=== PATIENT | female | born 1990 | race Two or more races ===

== ENCOUNTER 2020-10-08 00:03 | Emergency (ER) | payer SELFPAY ==
[~2020-10-08] VITALS: Ht 149.9 cm; Wt 56.7 kg
[2020-10-08 00:30] VITALS: BP 104/66
--- NOTE | 2020-10-08 00:58 | NUR ---
medically stable for d/c. Patient discharged to home in stable condition. Written and verbal after care instructions given. Patient verbalizes understanding of instruction.
== END 2020-10-08 01:00 | disposition home or self-care (01) ==
LOC: ER 00:06
DX: Z71.1 Person with feared health complaint in whom no diagnosis is made (principal)

== ENCOUNTER 2021-06-21 00:13 | Emergency (ER) | payer SELFPAY ==
[~2021-06-21] VITALS: Ht 149.9 cm; Wt 54.4 kg
--- NOTE | 2021-06-21 00:58 | NUR ---
BIBS W/ MULTIPLE COMPLAINTS, "FEELING SHAKY, AND FATIGUED WITH NUMBNESS AND TINGLINGS TO FINGERS AND LIPS X 1 WEEK THAT HAS WORSTENED TODAY. PT ALERT AND ORIENTED X 4 BREATHING EVEN AND UNLABORED. ALL V/S STABLE.
[2021-06-21 02:47] LABS: BASOPHILS # (AUTO) 0.1 K/uL (0.0-0.2); BASOPHILS % (AUTO) 1.1 % (0.0-2.0); EOSINOPHILS % (AUTO) 2.8 % (0.0-6.0); HEMATOCRIT 35 % (33-45); HEMOGLOBIN 11.1 g/dL (11.5-14.8); LYMPHOCYTES # (AUTO) 1.9 K/uL (0.8-4.8); MEAN CORPUSCULAR HGB CONC 31 g/dl (31.0-36.0); MEAN CORPUSCULAR VOLUME 73 fL (82-100); MONOCYTES # (AUTO) 0.6 K/uL (0.1-1.30); MONOCYTES % (AUTO) 10.2 % (2.0-12.0); NEUTROPHILS % (AUTO) 52.9 % (43.0-81.0); PLATELET COUNT (AUTO) 554 K/uL (150-450); RED BLOOD CELL COUNT(AUTO) 4.88 MIL/uL (4.0-5.2); WHITE BLOOD COUNT (AUTO) 5.7 K/uL (4.3-11.0)
[2021-06-21 03:04] LABS: MAGNESIUM 2.1 mg/dL (1.8-2.4)
[2021-06-21 03:13] LABS: ALBUMIN 3.7 g/dL (3.4-5.0); BILIRUBIN,DIRECT 0.1 mg/dL (0.0-0.2); BILIRUBIN,TOTAL 0.2 mg/dL (0.2-1.0); CALCIUM, SERUM 8.6 mg/dL (8.5-10.1); CREATININE 0.4 mg/dL (0.6-1.3); TOTAL PROTEIN, SERUM 8.1 g/dL (6.4-8.2)
[2021-06-21 03:19] LABS: THYROID STIMULATING HORMONE 5.499 uIU/mL (0.358-3.74)
[2021-06-21] MEDS ORDERED: POTASSIUM CHLORIDE 20 MEQ TAB.PRT.SR PO ONE ×2 (04:30→04:35)
--- NOTE | 2021-06-21 04:35 | NUR ---
DESULPHURING OPERATOR AT PT'S BEDSIDE
[2021-06-21] MEDS ORDERED: LEVO88TA5 PO (05:40)
--- NOTE | 2021-06-21 06:04 | NUR ---
Patient discharged to home in stable condition. Written and verbal after care instructions given. Patient verbalizes understanding of instruction.
[2021-06-21 06:10] VITALS: BP 115/74
[2021-06-21 07:05] LABS: EOSINOPHILS % (MANUAL) 1 % (0-4); LYMPHOCYTES % (MANUAL) 30 % (16-48); MONOCYTES % (MANUAL) 8 % (0-11.0); NEUTROPHILS % (MANUAL) 61 (42-76)
== END 2021-06-21 06:11 | disposition home or self-care (01) ==
LOC: ER 00:23
DX: E03.9 Hypothyroidism, unspecified (principal); E87.6 Hypokalemia; D64.9 Anemia, unspecified
CPT/HCPCS: 36415; 80048-TC; 80076-TC; 83735-TC; 84439-TC; 84443-TC; 84481; 85025-TC; 85730-TC

== ENCOUNTER 2021-08-19 18:11 | Emergency (ER) | payer MEDICAID ==
[~2021-08-19] VITALS: Ht 149.9 cm; Wt 55.3 kg
--- NOTE | 2021-08-19 18:29 | NUR ---
CAME IN FOR ABDOMINAL PAIN SINCE 1700 TODAY. TO ER BED 1, HOOKED TO MONITOR, VSS, CHANGED TO HOSP GOWN, WARM BLANKET PROVIDED, AWAITING MD VITAL
--- NOTE | 2021-08-19 18:30 | NUR ---
URINE SAMPLE COLLECTED AND SENT TO LAB
[2021-08-19] MEDS ORDERED: ACETAMINOPHEN ES 500 MG TABLET ONE (18:56)
[2021-08-19] MEDS ORDERED: ACETAMINOPHEN ES 500 MG TABLET PO ONE (19:00)
[2021-08-19 19:14] LABS: BILIRUBIN,URINE NEGATIVE (NEGATIVE); COLOR,URINE YELLOW (YELLOW); LEUKOCYTE ESTERASE ,URINE MODERATE (NEGATIVE); NITRITE, URINE POSITIVE (NEGATIVE); PROTEIN,URINE NEGATIVE (NEGATIVE); UGLUCOSE NEGATIVE (NEGATIVE)
[2021-08-19 19:21] LABS: BACTERIA,URINE Many /HPF (None Seen); RBC,URINE NONE SEEN /HPF (0-2)
--- NOTE | 2021-08-19 19:30 | NUR ---
US TECH AT PT'S BEDSIDE
[2021-08-19 19:43] LABS: ALBUMIN 4.2 g/dL (3.4-5.0); BILIRUBIN,DIRECT 0.1 mg/dL (0.0-0.2); BILIRUBIN,TOTAL 0.3 mg/dL (0.2-1.0); CALCIUM, SERUM 9.1 mg/dL (8.5-10.1); CREATININE 0.5 mg/dL (0.6-1.3); POTASSIUM 3.1 mmol/L (3.5-5.1); TOTAL PROTEIN, SERUM 8.7 g/dL (6.4-8.2)
[2021-08-19 20:13] LABS: BASOPHILS # (AUTO) 0.3 K/uL (0.0-0.2); BASOPHILS % (AUTO) 4.1 % (0.0-2.0); EOSINOPHILS % (AUTO) 1.6 % (0.0-6.0); HEMATOCRIT 36 % (33-45); HEMOGLOBIN 11.4 g/dL (11.5-14.8); LYMPHOCYTES # (AUTO) 2.1 K/uL (0.8-4.8); LYMPHOCYTES % (AUTO) 29.4 % (20.0-44.0); MEAN CORPUSCULAR HGB CONC 31 g/dl (31.0-36.0); MEAN CORPUSCULAR VOLUME 72 fL (82-100); MONOCYTES # (AUTO) 0.7 K/uL (0.1-1.30); MONOCYTES % (AUTO) 9.3 % (2.0-12.0); NEUTROPHILS # (AUTO) 4.1 K/uL (1.8-8.9); NEUTROPHILS % (AUTO) 55.6 % (43.0-81.0); PLATELET COUNT (AUTO) 631 K/uL (150-450); RED BLOOD CELL COUNT(AUTO) 5.05 MIL/uL (4.0-5.2); WHITE BLOOD COUNT (AUTO) 7.3 K/uL (4.3-11.0)
[2021-08-19] MEDS ORDERED: ACET-2605 PO (20:36)
[2021-08-19] MEDS ORDERED: CEPH500C2 PO (20:36)
[2021-08-19 20:45] VITALS: BP 117/65
--- NOTE | 2021-08-19 20:45 | NUR ---
Patient discharged to home in stable condition. Written and verbal after care instructions given. Patient verbalizes understanding of instruction. PT ambulatory with a steady gait
== END 2021-08-19 21:10 | disposition home or self-care (01) ==
LOC: ER 18:14
DX: O23.41 Unspecified infection of urinary tract in pregnancy, first trimester (principal); N39.0 Urinary tract infection, site not specified; Z3A.01 Less than 8 weeks gestation of pregnancy; Z79.1 Long term (current) use of non-steroidal anti-inflammatories (NSAID); Z79.899 Other long term (current) drug therapy
CPT/HCPCS: 36415; 76856-TC; 80048-TC; 80076-TC; 81001; 83690-TC; 84702-TC; 84703-TC; 85025-TC; 87086-TC; 87186-TC